=== PATIENT | female | born 1935 | race Caucasian/White ===

== ENCOUNTER 2018-09-21 10:38 | Day surgery (SDC) | payer MEDICARE ==
[2018-09-20 14:43] LABS: BASOPHILS # (AUTO) 0.1 X10'3 (0-0.2); BASOPHILS % (AUTO) 0.7 % (0-1); EOSINOPHILS # (AUTO) 0.2 X10'3 (0-0.9); EOSINOPHILS % (AUTO) 2.5 % (0-6); HEMOGLOBIN 14.7 g/dl (12.0-16.0); LYMPHOCYTES # (AUTO) 2.2 X10'3 (1.1-4.8); LYMPHOCYTES % (AUTO) 28.7 % (21-51); MEAN CORPUSCULAR HEMOGLOBIN 29.9 PG (27.0-31.0); MEAN CORPUSCULAR HGB CONC 33.5 g/dL (33.0-36.5); MEAN CORPUSCULAR VOLUME 89.3 FL (78-98); MONOCYTES # (AUTO) 0.7 X10'3 (0-0.9); MONOCYTES % (AUTO) 8.6 % (2-12); NEUTROPHILS # (AUTO) 4.6 X10'3 (1.8-7.7); NEUTROPHILS % (AUTO) 59.5 % (42-75); PLATELET COUNT 206 X10'3 (140-440); RED BLOOD COUNT 4.93 X10'6 (4.20-5.60); RED CELL DISTRIBUTION WIDTH 14.6 % (11.5-14.5); WHITE BLOOD COUNT 7.7 X10'3 (4.5-11.0)
[2018-09-20 15:00] LABS: ALBUMIN 3.6 G/DL (3.4-5.0); ANION GAP 7 (8-16); BLOOD UREA NITROGEN 27 MG/DL (7-18); BUN/CREATININE RATIO 16.5 (6.6-38.0); CALCIUM 9.1 MG/DL (8.5-10.1); CHLORIDE 105 MMOL/L (99-107); CREATININE 1.64 MG/DL (0.40-0.90); GLUCOSE 139 MG/DL (70-104); POTASSIUM 4.3 MMOL/L (3.5-5.1); SODIUM 142 MMOL/L (135-145); TOTAL CARBON DIOXIDE 30.5 MMOL/L (24-32); eGFR 30 ML/MIN
[2018-09-20 15:08] LABS: INR 1.2 INR; PARTIAL THROMBOPLASTIN TIME 39 SECONDS (22-32)
[~2018-09-21] VITALS: Ht 157.5 cm; Wt 112.8 kg
[2018-09-21] VITALS (13 sets, daily range): BP systolic 121–155; BP diastolic 56–83
[~2018-09-21 10:38] MED LIST: DABI150C PO; FURO-150 PO; LEVO175T2 PO; OMEP20CA10 PO; POTA10CA44 PO; SOTA80TA PO; VALS1TAB79 PO
[2018-09-21] MEDS ORDERED: nitroGLYCERIN-Tridil 50MG/D5W 250 ML IV ONE (11:11)
[2018-09-21] MEDS ORDERED: heparin 1,000unit/ml 10ml vial 10 ML ONE (11:12)
[2018-09-21] MEDS ORDERED: midazolam 2 mg/2 ml injection ONE (11:12)
[2018-09-21] MEDS ORDERED: iohexol 350MG/ML 100ml bottle IV ONE ×2 (11:12→13:05)
[2018-09-21] MEDS ORDERED: LIDOcaine 1% (10mg/ml)w/preservative injection 20ml MDV ONE (11:12)
[2018-09-21] MEDS ORDERED: iohexol 350 MG/ML 50ML vial IV ONE (11:12)
[2018-09-21] MEDS ORDERED: verapamil 2.5 mg/ml inj IV ONE (11:12)
[2018-09-21] MEDS ORDERED: fentaNYL/PF 50MCG/1 ML 2ML syringe ONE (11:12)
[2018-09-21] MEDS ORDERED: LORazepam 0.5 MG tablet PO PRN (11:35)
[2018-09-21] MEDS ORDERED: normal saline 1,000 ML IV SCH (11:35)
[2018-09-21] MEDS ORDERED: diphenhydrAMINE 25mg capsule PO PRN (11:35)
[2018-09-21] MEDS ORDERED: LEVO50TA PO (11:42)
[2018-09-21] MEDS ORDERED: LOVA20TA2 PO (11:42)
[2018-09-21] MEDS ORDERED: PANT-47 PO (11:42)
[2018-09-21] MEDS ORDERED: POTA20PA40 PO (11:42)
[2018-09-21] MEDS ORDERED: FURO-150 PO (11:42)
[2018-09-21 12:56] LABS: ISTAT Hct MIX 41 %PCV (35-48); ISTAT O2 SATURATION MIX VENOUS 68 % (60-80); ISTAT SOURCE MIX
[2018-09-21 12:56] LABS: ISTAT HGB ART 13.9 g/dl (12.0-16.0); ISTAT Hct ART 41 %PCV (35-48); ISTAT O2 SATURATION ARTERIAL 99 % (95-98); ISTAT SOURCE ART
[2018-09-21] MEDS ORDERED: ACETYLCYSTEINE 200 MG/1 ML 4 ML ORAL SOLUTION PO SCH (14:08)
[2018-09-21] MEDS ORDERED: AMIO200T40 PO (16:25)
[2018-09-21] MEDS ORDERED: CARV-50 PO (16:25)
[2018-09-21] MEDS ORDERED: SPIR25TA5 PO (17:27)
== END 2018-09-21 19:30 | disposition home or self-care (01) ==
LOC: SSTAY O 10:38
PROVIDERS: ATTEND Internal Medicine Cardiovascular Disease
DX: I25.10 Atherosclerotic heart disease of native coronary artery without angina pectoris (principal); E78.5 Hyperlipidemia, unspecified; E03.9 Hypothyroidism, unspecified; I11.0 Hypertensive heart disease with heart failure; I50.22 Chronic systolic (congestive) heart failure; I42.0 Dilated cardiomyopathy; I50.30 Unspecified diastolic (congestive) heart failure; E66.9 Obesity, unspecified; F17.210 Nicotine dependence, cigarettes, uncomplicated; I48.91 Unspecified atrial fibrillation; Z98.890 Other specified postprocedural states; Z79.899 Other long term (current) drug therapy; Z84.89 Family history of other specified conditions; G47.30 Sleep apnea, unspecified
CPT/HCPCS: 36415; 80048; 82803; 83880; 85014; 85025; 85610; 85730; 93005; 93460; 99152; 99153; J1644; J2001; J2250; J3010; J7030; Q9967; A4620; C1769; J3490

== ENCOUNTER 2019-01-30 10:10 | Outpatient (CLI) | payer MEDICARE ==
[~2019-01-30 10:10] MED LIST changes: +AMIO200T61 PO; +CARV-50 PO; -LEVO175T2 PO; +LEVO50TA PO; +LOVA20TA2 PO; -OMEP20CA10 PO; +PANT-47 PO; -POTA10CA44 PO; +POTA20PA40 PO; -SOTA80TA PO; +SPIR25TA5 PO; -VALS1TAB79 PO
== END 2019-01-30 12:49 | disposition home or self-care (01) ==
LOC: WOUND CARE 10:10 → EDSTATUS 10:30 → WOUND CARE 12:49
PROVIDERS: ATTEND Surgery
DX: I83.022 Varicose veins of left lower extremity with ulcer of calf (principal); L97.221 Non-pressure chronic ulcer of left calf limited to breakdown of skin; I25.10 Atherosclerotic heart disease of native coronary artery without angina pectoris; I11.0 Hypertensive heart disease with heart failure; I50.22 Chronic systolic (congestive) heart failure; I42.0 Dilated cardiomyopathy; E78.5 Hyperlipidemia, unspecified; E03.9 Hypothyroidism, unspecified; E66.9 Obesity, unspecified; G47.30 Sleep apnea, unspecified; I48.91 Unspecified atrial fibrillation; M19.90 Unspecified osteoarthritis, unspecified site; M81.0 Age-related osteoporosis without current pathological fracture; G89.29 Other chronic pain; M54.9 Dorsalgia, unspecified; R60.9 Edema, unspecified; F17.210 Nicotine dependence, cigarettes, uncomplicated; Z79.899 Other long term (current) drug therapy; Z98.890 Other specified postprocedural states
CPT/HCPCS: 29581; A4663; A6021; A6441

== ENCOUNTER 2019-02-09 09:50 | Outpatient (CLI) | payer MEDICARE | END 2019-02-09 13:00 | disposition home or self-care (01) | LOC: WOUND CARE 09:50 → EDSTATUS 10:00 → WOUND CARE 13:00 | PROVIDERS: ATTEND Surgery | DX: I83.022 Varicose veins of left lower extremity with ulcer of calf (principal); L97.221 Non-pressure chronic ulcer of left calf limited to breakdown of skin; I25.10 Atherosclerotic heart disease of native coronary artery without angina pectoris; I11.0 Hypertensive heart disease with heart failure; I50.22 Chronic systolic (congestive) heart failure; I42.0 Dilated cardiomyopathy; E78.5 Hyperlipidemia, unspecified; E03.9 Hypothyroidism, unspecified; E66.9 Obesity, unspecified; G47.30 Sleep apnea, unspecified; I48.91 Unspecified atrial fibrillation; M19.90 Unspecified osteoarthritis, unspecified site; M81.0 Age-related osteoporosis without current pathological fracture; G89.29 Other chronic pain; M54.9 Dorsalgia, unspecified; R60.9 Edema, unspecified; F17.210 Nicotine dependence, cigarettes, uncomplicated; Z79.899 Other long term (current) drug therapy; Z98.890 Other specified postprocedural states; Z68.42 Body mass index [BMI] 45.0-49.9, adult | CPT/HCPCS: 29581; 93970; A4663; A6446; G0463 ==

== ENCOUNTER 2019-02-23 09:52 | Outpatient (CLI) | payer MEDICARE | END 2019-02-23 12:05 | disposition home or self-care (01) | LOC: WOUND CARE 09:52 → EDSTATUS 10:00 → WOUND CARE 12:05 | PROVIDERS: ATTEND Surgery | DX: I83.022 Varicose veins of left lower extremity with ulcer of calf (principal); L97.221 Non-pressure chronic ulcer of left calf limited to breakdown of skin; I25.10 Atherosclerotic heart disease of native coronary artery without angina pectoris; I11.0 Hypertensive heart disease with heart failure; I50.22 Chronic systolic (congestive) heart failure; I42.0 Dilated cardiomyopathy; E78.5 Hyperlipidemia, unspecified; E03.9 Hypothyroidism, unspecified; E66.9 Obesity, unspecified; G47.30 Sleep apnea, unspecified; I48.91 Unspecified atrial fibrillation; M19.90 Unspecified osteoarthritis, unspecified site; M81.0 Age-related osteoporosis without current pathological fracture; G89.29 Other chronic pain; M54.9 Dorsalgia, unspecified; R60.9 Edema, unspecified; F17.210 Nicotine dependence, cigarettes, uncomplicated; Z79.899 Other long term (current) drug therapy; Z98.890 Other specified postprocedural states; Z68.42 Body mass index [BMI] 45.0-49.9, adult | CPT/HCPCS: A4663; G0463 ==

== ENCOUNTER 2019-03-09 07:10 | Day surgery (SDC) | payer MEDICARE ==
[2019-03-08 14:15] LABS: BASOPHILS # (AUTO) 0.1 X10'3 (0-0.2); BASOPHILS % (AUTO) 0.8 % (0-1); EOSINOPHILS # (AUTO) 0.2 X10'3 (0-0.9); EOSINOPHILS % (AUTO) 3.3 % (0-6); HEMATOCRIT 37.9 % (35.0-45.0); HEMOGLOBIN 12.6 g/dl (12.0-16.0); LYMPHOCYTES # (AUTO) 1.8 X10'3 (1.1-4.8); LYMPHOCYTES % (AUTO) 26.8 % (21-51); MEAN CORPUSCULAR HEMOGLOBIN 29.7 PG (27.0-31.0); MEAN CORPUSCULAR HGB CONC 33.3 g/dL (33.0-36.5); MEAN CORPUSCULAR VOLUME 89.3 FL (78-98); MEAN PLATELET VOLUME 7.7 FL (7.4-10.4); MONOCYTES # (AUTO) 0.7 X10'3 (0-0.9); MONOCYTES % (AUTO) 11.1 % (2-12); NEUTROPHILS # (AUTO) 3.9 X10'3 (1.8-7.7); PLATELET COUNT 204 X10'3 (140-440); RED BLOOD COUNT 4.25 X10'6 (4.20-5.60); RED CELL DISTRIBUTION WIDTH 14.2 % (11.5-14.5); WHITE BLOOD COUNT 6.7 X10'3 (4.5-11.0)
[2019-03-08 14:30] LABS: ALBUMIN 3.2 G/DL (3.4-5.0); ANION GAP 7 (8-16); BLOOD UREA NITROGEN 24 MG/DL (7-18); BUN/CREATININE RATIO 16.3 (6.6-38.0); CALCIUM 8.1 MG/DL (8.5-10.1); CHLORIDE 113 MMOL/L (99-107); CREATININE 1.47 MG/DL (0.40-0.90); GLUCOSE 104 MG/DL (70-104); POTASSIUM 4.6 MMOL/L (3.5-5.1); SODIUM 147 MMOL/L (135-145); TOTAL CARBON DIOXIDE 27.5 MMOL/L (24-32); eGFR 34 ML/MIN
[~2019-03-09] VITALS: Ht 157.5 cm; Wt 116.0 kg
[2019-03-09] VITALS (29 sets, daily range): BP systolic 105–172; BP diastolic 40–86
[2019-03-09] MEDS ORDERED: LOSA25TA41 PO (07:42)
[2019-03-09] MEDS ORDERED: MIDAZolam 5mg/ml 2ml vial IV ONE (07:45)
[2019-03-09] MEDS ORDERED: morphine 10mg/ml inj. IV ONE (07:45)
[2019-03-09] MEDS ORDERED: atropine 0.1mg/ml 10ml syringe IV ONE (07:45)
[2019-03-09] MEDS ORDERED: diphenhydrAMINE 25mg capsule PO ONE (07:45)
[2019-03-09] MEDS ORDERED: LORazepam 0.5 MG tablet PO ONE (07:45)
[2019-03-09] MEDS ORDERED: normal saline 1000ml 1,000 ML IV SCH (07:45)
[2019-03-09] MEDS ORDERED: amiodarone in dextrose, iso-osm 150mg/100ml bag IV ONE (07:45)
== END 2019-03-09 12:50 | disposition home or self-care (01) ==
LOC: SSTAY O 07:10
PROVIDERS: ATTEND Internal Medicine Cardiovascular Disease
DX: I48.91 Unspecified atrial fibrillation (principal); E78.5 Hyperlipidemia, unspecified; I11.0 Hypertensive heart disease with heart failure; I50.42 Chronic combined systolic (congestive) and diastolic (congestive) heart failure; I25.10 Atherosclerotic heart disease of native coronary artery without angina pectoris; G47.30 Sleep apnea, unspecified; E66.9 Obesity, unspecified; Z68.42 Body mass index [BMI] 45.0-49.9, adult; E03.9 Hypothyroidism, unspecified; M19.90 Unspecified osteoarthritis, unspecified site; M18.0 Bilateral primary osteoarthritis of first carpometacarpal joints; Z98.890 Other specified postprocedural states; F17.210 Nicotine dependence, cigarettes, uncomplicated; Z79.899 Other long term (current) drug therapy
CPT/HCPCS: 80048; 85025; 85610; 92960; 93005; J0282; J0461; J2250; J2270; J7030

== ENCOUNTER 2019-06-22 06:00 | Day surgery (SDC) | payer MEDICARE ==
[2019-06-21 11:37] LABS: CLARITY,URINE CLOUDY (Clear); COLOR,URINE YELLOW (Yellow); GLUCOSE, URINE NEGATIVE (Neg); KETONES,URINE NEGATIVE (Neg); LEUKOCYTE ESTERASE ,URINE NEGATIVE (Neg); NITRITES, URINE NEGATIVE (Neg); OCCULT BLOOD,URINE NEGATIVE (Neg); PROTEIN,URINE NEGATIVE (Neg); UROBILINOGEN,URINE 0.2 E.U/dL (0.2-1.0)
[2019-06-21 11:41] LABS: UA COLLECTION TYPE NON-SPECIFIED
[2019-06-21 11:48] LABS: ALBUMIN 3.4 G/DL (3.4-5.0); ANION GAP 6 (8-16); BLOOD UREA NITROGEN 17 MG/DL (7-18); CALCIUM 8.7 MG/DL (8.5-10.1); CHLORIDE 113 MMOL/L (99-107); CREATININE 1.31 MG/DL (0.40-0.90); GLUCOSE 103 MG/DL (70-104); MAGNESIUM 2.1 MG/DL (1.5-2.4); POTASSIUM 4.2 MMOL/L (3.5-5.1); SODIUM 148 MMOL/L (135-145); TOTAL CARBON DIOXIDE 29.5 MMOL/L (24-32); eGFR 39 ML/MIN
[2019-06-21 11:51] LABS: HYALINE CASTS 0-3 /LPF (NEGATIVE); MUCUS STRANDS MODERATE /LPF (Neg); SQUAMOUS EPITHELIAL CELL,UR MANY /LPF (FEW)
[2019-06-21 11:52] LABS: BACTERIA,URINE 2+ /HPF (Neg); RBC,URINE 0-2 /HPF (0-2); WBC,URINE 0-4 /HPF (0-4)
[~2019-06-22] VITALS: Ht 157.5 cm; Wt 113.3 kg
[2019-06-22] VITALS (10 sets, daily range): BP systolic 143–172; BP diastolic 53–75
[~2019-06-22 06:00] MED LIST changes: +LOSA25TA41 PO
[2019-06-22] MEDS ORDERED: normal saline 1,000 ML IV SCH (06:20)
[2019-06-22] MEDS ORDERED: LIDOcaine 1% W/epiNEPHrine 1:100,000 20ml vial ONE ×2 (07:39→08:18)
[2019-06-22] MEDS ORDERED: fentaNYL/PF 50MCG/1 ML 2ML syringe ONE ×2 (07:39→08:34)
[2019-06-22] MEDS ORDERED: midazolam 2 mg/2 ml injection ONE ×2 (07:39→08:21)
[2019-06-22] MEDS ORDERED: ceFAZolin 1000mg inj ONE ×2 (07:39→07:44)
[2019-06-22] MEDS ORDERED: CLOP75TA15 PO (08:09)
[2019-06-22] MEDS ORDERED: iohexol 350 MG/ML 50ML vial IV ONE (08:19)
[2019-06-22] MEDS ORDERED: hydrALAZINE 20mg/ml inj. IV ONE (08:51)
[2019-06-22] MEDS ORDERED: HYDROcodone/acetaminophen 10/325mg tab PO PRN (11:45)
[2019-06-22] MEDS ORDERED: HYDROcodone/acetaminophen 5mg/325mg tablet PO PRN (11:45)
== END 2019-06-22 14:45 | disposition home or self-care (01) ==
LOC: SSTAY O 06:00
PROVIDERS: ATTEND Internal Medicine Cardiovascular Disease
DX: I49.5 Sick sinus syndrome (principal); I48.0 Paroxysmal atrial fibrillation; I25.10 Atherosclerotic heart disease of native coronary artery without angina pectoris; I10 Essential (primary) hypertension; E78.5 Hyperlipidemia, unspecified; Z79.899 Other long term (current) drug therapy
CPT/HCPCS: 33208; 36415; 71046; 80048; 81001; 83735; 93005; 99152; 99153; C1785; C1894; C1898; J0360; J0690; J2250; J3010; J3370; J7030; Q9967; A4565; A4620; A6449